=== PATIENT | male | born 1975 | race Caucasian/White ===

== ENCOUNTER → 2020-09-23 | Outpatient (CLI) | payer OTHER | LOC: KOH-I 12:44 | DX: M25.511 Pain in right shoulder (principal); G89.29 Other chronic pain; M75.101 Unspecified rotator cuff tear or rupture of right shoulder, not specified as traumatic | CPT/HCPCS: 73221 ==

== ENCOUNTER → 2021-01-31 | Outpatient (CLI) | payer BC | LOC: HEART 5 11:00 | DX: R07.9 Chest pain, unspecified (principal) ==

== ENCOUNTER → 2021-08-02 | Outpatient (CLI) | payer OTHER | LOC: KOH-I 11:58 | DX: M25.561 Pain in right knee (principal); M17.11 Unilateral primary osteoarthritis, right knee; S83.281A Other tear of lateral meniscus, current injury, right knee, initial encounter; S83.241A Other tear of medial meniscus, current injury, right knee, initial encounter; M25.461 Effusion, right knee; X58.XXXA Exposure to other specified factors, initial encounter | CPT/HCPCS: 73721 ==

== ENCOUNTER → 2021-12-06 | Outpatient (CLI) | payer BC | LOC: EXRD 09:22 | DX: U07.1 COVID-19 (principal) | CPT/HCPCS: 71046 ==

== ENCOUNTER → 2022-03-08 | Outpatient (CLI) | payer BC | LOC: RAD 11:15 | DX: R10.31 Right lower quadrant pain (principal); R14.3 Flatulence | CPT/HCPCS: 74018 ==